=== PATIENT | female | born 1955 | race Two or more races ===

== ENCOUNTER 2025-01-05 06:20 | Day surgery (SDC) | payer OTHER ==
[2025-01-05] MEDS ORDERED: MIDAZOLAM HCL 2 MG/2 ML VIAL IV ONE (10:30)
[2025-01-05] MEDS ORDERED: DIPHENHYDRAMINE HCL 50 MG/ML VIAL 1ML IV ONE (10:30)
[2025-01-05] MEDS ORDERED: fentaNYL CITRATE 50 MCG/ML AMPUL IV ONE (10:30)
== END 2025-01-05 12:30 | disposition home or self-care (01) ==
LOC: AMB-ENDOS 06:20 → CIR.AMB 13:45
PROVIDERS: ATTEND Surgery
DX: D12.3 Benign neoplasm of transverse colon (principal); K63.5 Polyp of colon; Z86.0100 Personal history of colon polyps, unspecified

== ENCOUNTER 2025-02-06 11:55 | Inpatient (IN) | payer OTHER ==
[~2025-02-06] VITALS: Ht 152.4 cm; Wt 70.3 kg
[2025-02-06] MEDS ORDERED: IRBESARTAN150 MG PO (12:38)
[2025-02-06] MEDS ORDERED: ROSUVASTATIN CA20 MG PO (12:39)
[2025-02-06 12:45] VITALS: BP 160/78
[2025-02-10] MEDS ORDERED: CEFTRIAXONE SODIUM 2,000 MG VIAL ONE (10:43)
[2025-02-10] MEDS ORDERED: METRONIDAZOLE/SODIUM CHLORIDE 500 MG/100 ML PIGGYBACK IV ONE ×2 (10:43→17:16)
[2025-02-10] MEDS ORDERED: LIDOCAINE HCL 1%/EPINEPHRINE 20ML VIAL IJ ONE (11:47)
[2025-02-10] MEDS ORDERED: BUPIVACAINE HCL/MPF 0.5% 30ML VIAL ONE (11:47)
[2025-02-10] MEDS ORDERED: VISTASEAL DUAL APPICATOR 1 EACH APPL TOP ONE (14:41)
[2025-02-10] MEDS ORDERED: THROMBIN,HU/FIBRINOGEN/CALCIUM 10 ML SYRINGE TOP ONE (14:42)
[2025-02-10] MEDS ORDERED: ONDANSETRON HCL 2 MG/ML VIAL IV PRN (15:30)
[2025-02-10] MEDS ORDERED: RINGERS SOLUTION,LACTATED 1,000 ML IV SCH (15:30)
[2025-02-10] MEDS ORDERED: OxyCODONE HCL 5 MG TABLET (ROXICODONE) PO PRN (15:30)
[2025-02-10] MEDS ORDERED: MORPHINE SULFATE 4 MG/ML CARTRIDGE IV PRN (15:30)
[2025-02-10] MEDS ORDERED: MORPHINE SULFATE 4 MG/ML VIAL IV ONE (16:10)
[2025-02-10] MEDS ORDERED: HYOSCYAMINE SULFATE 0.125 MG TAB.SUBL SL SCH (17:00)
[2025-02-10] MEDS ORDERED: GABAPENTIN 300 MG CAPSULE PO SCH (17:00)
[2025-02-10] MEDS ORDERED: TAMSULOSIN HCL 0.4 MG CAP PO SCH (17:00)
[2025-02-10] MEDS ORDERED: METRONIDAZOLE/SODIUM CHLORIDE 500 MG/100 ML PIGGYBACK IV SCH (17:00)
[2025-02-10] MEDS ORDERED: LACTOBACILLUS ACIDOPHILUS 1 CAP CAP PO SCH (17:00)
[2025-02-10] MEDS ORDERED: ACETAMINOPHEN 500 MG GEL..CAP PO SCH (18:00)
[2025-02-10 18:29] VITALS: BP 145/82; O2SAT 95
[2025-02-10] MEDS ORDERED: FAMOTIDINE/PF 20 MG/2 ML VIAL IV PUSH SCH (21:00)
[2025-02-10] MEDS ORDERED: CIPROFLOXACIN IN 5 % DEXTROSE 400 MG/200 ML PIGGYBAG IV SCH (21:00)
[2025-02-11 00:25] VITALS: BP 133/77; O2SAT 95
[2025-02-11 07:47] LABS: CALCIUM 8.4 mg/dL (8.5-10.1); CREATININE SERUM 0.61 mg/dL (0.55-1.02); GFR 96.96; PHOSPHOROUS 3.5 mg/dL (2.5-4.9); POTASSIUM 4.2 mEq/L (3.5-5.1)
[2025-02-11 07:51] LABS: MAGNESIUM 1.3 mg/dL (1.8-2.4)
[2025-02-11 07:52] LABS: HEMATOCRIT 36.2 % (36.0-45.00); HEMOGLOBIN 12.1 g/dL (12.0-15.00); MEAN CELL VOLUME 81.1 fL (80.00-100.00); MEAN CORPUSCULAR HEMOGLOBIN 27.2 pg (27.00-32.0); MEAN CORPUSCULAR HGB CONC 33.5 g/dl (32.0-36.0); PLATELET COUNT 209 K/uL (150-450); RED BLOOD COUNT 4.46 M/uL (4.00-6.00); RED CELL DISTRIBUTION WIDTH 15.3 % (11.5-14.5)
[2025-02-11] MEDS ORDERED: IRBESARTAN 150 MG TABLET PO SCH (09:00)
[2025-02-11 09:15] VITALS: BP 138/78; O2SAT 97
[2025-02-11] MEDS ORDERED: POTASSIUM PHOS,M-BASIC-D-BASIC 15 MM in 0.9 % SODIUM CHLORIDE 250 ML IV ONE (12:00)
[2025-02-11] MEDS ORDERED: ENOXAPARIN SODIUM 40 MG/0.4 ML SYRINGE SUBCUTANEO SCH (17:00)
[2025-02-11 17:22] VITALS: BP 139/74; O2SAT 96
[2025-02-11] MEDS ORDERED: NAPH,MB-DB/K PH,MBDB 1 PKT PACKET PO ONE (18:45)
[2025-02-11 23:31] VITALS: BP 118/65; O2SAT 96
[2025-02-12 05:54] LABS: CALCIUM 8.6 mg/dL (8.5-10.1); CREATININE SERUM 0.72 mg/dL (0.55-1.02); GFR 80.08; MAGNESIUM 1.6 mg/dL (1.8-2.4); POTASSIUM 3.67 mEq/L (3.5-5.1)
[2025-02-12 06:03] LABS: PHOSPHOROUS 1.6 mg/dL (2.5-4.9)
[2025-02-12 06:15] LABS: HEMATOCRIT 36.1 % (36.0-45.00); HEMOGLOBIN 11.8 g/dL (12.0-15.00); MEAN CELL VOLUME 82.6 fL (80.00-100.00); MEAN CORPUSCULAR HEMOGLOBIN 26.9 pg (27.00-32.0); MEAN CORPUSCULAR HGB CONC 32.6 g/dl (32.0-36.0); PLATELET COUNT 206 K/uL (150-450); RED BLOOD COUNT 4.37 M/uL (4.00-6.00); RED CELL DISTRIBUTION WIDTH 15.1 % (11.5-14.5)
[2025-02-12] MEDS ORDERED: MAGNESIUM SULFATE IN WATER 50 ML IV ONE (06:15)
[2025-02-12 08:00] VITALS: BP 134/80; O2SAT 97
[2025-02-12] MEDS ORDERED: ENOXAPARIN SODIUM 40 MG/0.4 ML SYRINGE SUBCUTANEO SCH (09:00)
[2025-02-12] MEDS ORDERED: POTASSIUM PHOS,M-BASIC-D-BASIC 15 MM in 0.9 % SODIUM CHLORIDE 250 ML IV ONE (11:00)
[2025-02-12] MEDS ORDERED: MAGNESIUM SULFATE IN WATER 50 ML IV NR (12:00)
[2025-02-12] MEDS ORDERED: POTASSIUM PHOS,M-BASIC-D-BASIC 3 MM/ML VIAL IV ONE (14:00)
[2025-02-13] VITALS: BP 105/64; O2SAT 96
[2025-02-13 08:00] VITALS: BP 132/80; O2SAT 96
[2025-02-13] MEDS ORDERED: HYOSCYAMINE0.125 M1 SL (15:43)
[2025-02-13] MEDS ORDERED: INTESTINEX680 M1 PO (15:44)
[2025-02-13 16:19] VITALS: BP 158/99; O2SAT 98
== END 2025-02-13 17:45 | disposition home or self-care (01) | DRG 331 ==
LOC: SURG 02-10 08:25 → O/R 02-10 08:25 → SURH 02-10 12:30 → SURG 02-10 16:19 → SURH 02-10 16:30
PROVIDERS: Internal Medicine Geriatric Medicine; ADMIT Surgery; ATTEND Surgery
PROC: 07BB4ZZ Excision of Mesenteric Lymphatic, Percutaneous Endoscopic Approach (ICD-10-PCS; 2025-02-10)
PROC: 07BC4ZZ Excision of Pelvis Lymphatic, Percutaneous Endoscopic Approach (ICD-10-PCS; 2025-02-10)
PROC: 0DBL4ZZ Excision of Transverse Colon, Percutaneous Endoscopic Approach (ICD-10-PCS; 2025-02-10)
PROC: 0DQE4ZZ Repair Large Intestine, Percutaneous Endoscopic Approach (ICD-10-PCS; 2025-02-10)
PROC: 0DTF4ZZ Resection of Right Large Intestine, Percutaneous Endoscopic Approach (ICD-10-PCS; principal; 2025-02-10 16:30)
DX: D12.3 Benign neoplasm of transverse colon (principal); R59.0 Localized enlarged lymph nodes; K63.5 Polyp of colon; K64.8 Other hemorrhoids; E83.39 Other disorders of phosphorus metabolism; E83.42 Hypomagnesemia; I10 Essential (primary) hypertension